=== PATIENT | female | born 1985 | race Caucasian/White ===

== ENCOUNTER → 2017-08-22 | Outpatient (CLI) | payer OTHER ==
[~2017-08-22] MED LIST: CHOLTAB3 PO; CLC100 PO; FRRS300 PO; MTR600X PO; MYL80 PO; OXYC5TAB PO; PRENTAB26 PO
== END | disposition home or self-care (01) ==
LOC: C.PATHSPEC 13:53
PROVIDERS: ATTEND Dentist Endodontics
DX: K09.9 Cyst of oral region, unspecified (principal)